=== PATIENT | male | born 1950 | race Caucasian/White ===

== ENCOUNTER 2019-07-08 08:07 | Day surgery (SDC) | payer BC, MEDICARE ==
[~2019-07-08] VITALS: Ht 175.3 cm; Wt 107.7 kg
[2019-07-08] MEDS ORDERED: SODIUM CHLORIDE 0.9% 1,000 ML IV SCH (08:30)
[2019-07-08 08:42] VITALS: BP 138/66
[2019-07-08] MEDS ORDERED: EZET10TA70 PO (09:01)
[2019-07-08] MEDS ORDERED: LOSA25TA25 PO (09:01)
[2019-07-08] MEDS ORDERED: METO25TA91 PO (09:01)
[2019-07-08] MEDS ORDERED: ALLO100T30 PO (09:01)
[2019-07-08] MEDS ORDERED: ESCI10TA PO (09:01)
[2019-07-08] MEDS ORDERED: CHOL10003 PO (09:01)
[2019-07-08] MEDS ORDERED: ATOR40TA PO (09:01)
[2019-07-08] MEDS ORDERED: ASPI-496 PO (09:01)
[2019-07-08 09:16] LABS: BASOPHILS # (AUTO) 0.04 x10^3/uL (0-0.1); BASOPHILS % (AUTO) 1 % (0-1); EOSINOPHILS # (AUTO) 0.21 x10^3/uL (0-0.4); EOSINOPHILS % (AUTO) 3 % (1-7); LYMPHOCYTES # (AUTO) 1.48 x10^3/uL (1-3.4); LYMPHOCYTES % (AUTO) 20 % (22-44); MD NO; MEAN CORPUSCULAR HEMOGLOBIN 30.1 pg (27.5-34.5); MEAN CORPUSCULAR HGB CONC 32.9 g/dL (33.2-36.2); MEAN CORPUSCULAR VOLUME 91.4 fL (81-97); MONOCYTES # (AUTO) 0.52 x10^3/uL (0.2-0.8); MONOCYTES % (AUTO) 7 % (2-9); NEUTROPHILS # (AUTO) 5.19 x10^3/uL (1.8-6.8); NEUTROPHILS % (AUTO) 70 % (42-75); PLATELET COUNT 211 x10^3/uL (130-400); RED BLOOD COUNT 5.66 x10^6/uL (4.38-5.82); RED CELL DISTRIBUTION WIDTH 13.5 % (9.4-14.8)
[2019-07-08 09:25] LABS: ANION GAP 5 mmol/L (5-15); CHLORIDE 109 mmol/L (98-107); CREATININE 0.86 mg/dL (0.7-1.3)
[2019-07-08] MEDS ORDERED: BIVALIRUDIN 250 MG ONE (13:44)
[2019-07-08] MEDS ORDERED: FENTANYL PF 100 MCG/2ML ONE (13:44)
[2019-07-08] MEDS ORDERED: MIDAZOLAM 1 MG/ML, 5ML ONE (13:44)
[2019-07-08] MEDS ORDERED: LIDOCAINE 2%, 20ML ONE (13:44)
== END 2019-07-08 16:25 | disposition home or self-care (01) ==
LOC: CACL 08:07
PROVIDERS: ATTEND Internal Medicine Cardiovascular Disease
DX: R07.89 Other chest pain (principal); I25.110 Atherosclerotic heart disease of native coronary artery with unstable angina pectoris; I25.83 Coronary atherosclerosis due to lipid rich plaque; I25.2 Old myocardial infarction; I10 Essential (primary) hypertension; E78.5 Hyperlipidemia, unspecified; E66.3 Overweight; Z68.37 Body mass index [BMI] 37.0-37.9, adult; Z79.899 Other long term (current) drug therapy; Z87.891 Personal history of nicotine dependence; Z88.5 Allergy status to narcotic agent; Z85.46 Personal history of malignant neoplasm of prostate; Z95.5 Presence of coronary angioplasty implant and graft; Z98.890 Other specified postprocedural states; Z80.3 Family history of malignant neoplasm of breast; Z80.1 Family history of malignant neoplasm of trachea, bronchus and lung
CPT/HCPCS: 36415; 80048; 85025; 93458; 99156; C1760; C1769; C1894; J2250; J3010; Q9967; J0583

== ENCOUNTER 2019-08-27 15:43 | Outpatient (CLI) | payer MEDICARE ==
[~2019-08-27 15:43] MED LIST: ALLO100T30 PO; ASPI-496 PO; ATOR40TA PO; CHOL10003 PO; ESCI10TA PO; EZET10TA70 PO; LOSA25TA25 PO; METO25TA91 PO
== END 2019-08-27 23:59 | disposition home or self-care (01) ==
LOC: CVU 15:43
PROVIDERS: ATTEND Internal Medicine Cardiovascular Disease
DX: I08.0 Rheumatic disorders of both mitral and aortic valves (principal); R94.31 Abnormal electrocardiogram [ECG] [EKG]
CPT/HCPCS: 93306

== ENCOUNTER 2019-10-02 18:58 | Emergency (ER) | payer MEDICARE ==
[~2019-10-02] VITALS: Ht 177.8 cm; Wt 121.1 kg
[2019-10-02] MEDS ORDERED: MAALOX/HYOSCYAMINE/LIDOCAINE 45 ML BTL ONE (19:23)
[2019-10-02] MEDS ORDERED: MAALOX/HYOSCYAMINE/LIDOCAINE 45 ML BTL PO ONE (19:30)
[2019-10-02 19:34] LABS: BASOPHILS # (AUTO) 0.05 x10^3/uL (0-0.1); BASOPHILS % (AUTO) 1 % (0-1); EOSINOPHILS % (AUTO) 4 % (1-7); LYMPHOCYTES # (AUTO) 1.94 x10^3/uL (1-3.4); LYMPHOCYTES % (AUTO) 24 % (22-44); MD NO; MEAN CORPUSCULAR HGB CONC 33.1 g/dL (33.2-36.2); MEAN CORPUSCULAR VOLUME 90.7 fL (81-97); MEAN PLATELET VOLUME 8.9 fL (7.4-10.4); MONOCYTES # (AUTO) 0.61 x10^3/uL (0.2-0.8); MONOCYTES % (AUTO) 7 % (2-9); NEUTROPHILS # (AUTO) 5.31 x10^3/uL (1.8-6.8); NEUTROPHILS % (AUTO) 65 % (42-75); PLATELET COUNT 218 x10^3/uL (130-400); RED BLOOD COUNT 5.26 x10^6/uL (4.38-5.82); RED CELL DISTRIBUTION WIDTH 13.9 % (9.4-14.8)
--- NOTE | 2019-10-02 19:35 | NUR ---
PT HERE FOR EPIGASTIC PAIN THAT STARTED AT 1800. PT TOOK TUMS AND 2 NITROS. PAIN IMPROVED. PAIN IS DULL AND HEAVY. PT HAS HX OF MN 18 YEARS AGO. 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 PT MEDICATED WITH GI COCKTAIL. PT HAS NO OTHER NEEDS AT THIS TIME.MD AT BEDSIDE. CALL LIGHT IN REACH
[2019-10-02 19:45] LABS: ALANINE AMINOTRANSFERASE 55 U/L (12-78); ALBUMIN 3.6 g/dL (3.4-5.0); ANION GAP 5 mmol/L (5-15); CALCIUM 8.7 mg/dL (8.5-10.1); CHLORIDE 106 mmol/L (98-107); CREATININE 0.96 mg/dL (0.7-1.3)
[2019-10-02 19:49] LABS: ALKALINE PHOSPHATASE 137 U/L (45-117); BILIRUBIN,TOTAL 0.6 mg/dL (0.2-1.0); TROPONIN I < 0.015 ng/mL (0.000-0.045)
[2019-10-02 20:28] VITALS: BP 128/67
--- NOTE | 2019-10-02 20:44 | NUR ---
Patient given discharge instructions and they have confirmed that they understand the instructions. Patient ambulatory with steady gait.
== END 2019-10-02 20:46 | disposition home or self-care (01) ==
LOC: ED 19:44
DX: R07.89 Other chest pain (principal); I25.2 Old myocardial infarction; K21.9 Gastro-esophageal reflux disease without esophagitis; I44.0 Atrioventricular block, first degree
CPT/HCPCS: 36415; 71045; 80053; 84484; 85025; 93005; 99285

== ENCOUNTER 2020-12-07 10:51 | Inpatient (IN) | payer MEDICARE ==
[~2020-12-07] VITALS: Ht 175.3 cm; Wt 78.3 kg
[2020-12-09 08:09] VITALS: BP 105/63
== END 2020-12-09 16:00 | disposition home or self-care (01) | DRG 189 ==
LOC: ED 13:10 → EDIP 13:15 → 4NW 14:57
PROVIDERS: ADMIT Internal Medicine; ATTEND Hospitalist
DX: J96.01 Acute respiratory failure with hypoxia (principal); E43 Unspecified severe protein-calorie malnutrition; E87.1 Hypo-osmolality and hyponatremia; C34.92 Malignant neoplasm of unspecified part of left bronchus or lung; J91.0 Malignant pleural effusion; D50.9 Iron deficiency anemia, unspecified; E87.6 Hypokalemia; Z66 Do not resuscitate; K52.9 Noninfective gastroenteritis and colitis, unspecified; T45.1X5A Adverse effect of antineoplastic and immunosuppressive drugs, initial encounter; I95.9 Hypotension, unspecified; I25.10 Atherosclerotic heart disease of native coronary artery without angina pectoris; Z68.25 Body mass index [BMI] 25.0-25.9, adult; Z85.118 Personal history of other malignant neoplasm of bronchus and lung; Z88.8 Allergy status to other drugs, medicaments and biological substances; Z79.82 Long term (current) use of aspirin; Z79.899 Other long term (current) drug therapy; Y92.89 Other specified places as the place of occurrence of the external cause; Z85.46 Personal history of malignant neoplasm of prostate